=== PATIENT | female | born 1960 | race Two or more races ===

== ENCOUNTER 2019-04-28 19:31 | Emergency (ER) | payer OTHER ==
[~2019-04-28] VITALS: Ht 157.5 cm; Wt 108.9 kg
--- NOTE | 2019-04-28 19:31 | NUR ---
ED Nurse Note: brought in by ambulance lafd ra 89 from home c/o allergic reaction to abx x 5 days; patient unable to recall medication. patient reports generalized itching. ao4. nad. vss. removed gown and placed on monitor. iv access established. blood collected; sent down to lab.
[2019-04-28 19:42] VITALS: BP 140/102
[2019-04-28] MEDS ORDERED: Solu-MEDROL 125mg Inj IVP ONE (19:45)
[2019-04-28] MEDS ORDERED: DiphenhydrAMINE 50mg/ml Inj IVP ONE (19:45)
--- NOTE | 2019-04-28 20:00 | NUR ---
ED Nurse Note: urine collected; sent down to lab.
[2019-04-28 20:06] LABS: BASOPHILS % (AUTO) 2.1 % (0.0-2.0); EOSINOPHILS % (AUTO) 5.6 % (0.0-3.0); HEMATOCRIT 40.3 % (37.0-47.0); HEMOGLOBIN 13.6 G/DL (12.0-16.0); LYMPHOCYTES % (AUTO) 39.7 % (20.0-45.0); MEAN CORPUSCULAR VOLUME 86 FL (80-99); MONOCYTES % (AUTO) 6.8 % (1.0-10.0); NEUTROPHILS % (AUTO) 45.8 % (45.0-75.0); PLATELET COUNT 204 K/UL (150-450); RED BLOOD COUNT 4.69 M/UL (4.20-5.40); RED CELL DISTRIBUTION WIDTH 11.4 % (11.6-14.8); WHITE BLOOD COUNT 5.7 K/UL (4.8-10.8)
[2019-04-28 20:21] LABS: ANION GAP 7 mmol/L (5-15); BLOOD UREA NITROGEN 13 mg/dL (7-18); CALCIUM 9.6 MG/DL (8.5-10.1); CARBON DIOXIDE 27 MMOL/L (21-32); CHLORIDE 101 MMOL/L (98-107); CREATININE 1.1 MG/DL (0.55-1.30); POTASSIUM 3.4 MMOL/L (3.5-5.1); SODIUM 135 MMOL/L (136-145)
[2019-04-28 20:27] LABS: ALANINE AMINOTRANSFERASE 167 U/L (12-78); ALBUMIN/GLOBULIN RATIO 1.1 (1.0-2.7); ALKALINE PHOSPHATASE 178 U/L (46-116); ASPARTATE AMINO TRANSFERASE 44 U/L (15-37); BILIRUBIN,TOTAL 0.3 MG/DL (0.2-1.0)
[2019-04-28 20:51] LABS: APPEARANCE,URINE SLIGHTLY CLOUDY; BILIRUBIN, URINE NEGATIVE (NEGATIVE); GLUCOSE, URINE (UA) NEGATIVE (NEGATIVE); KETONES,URINE NEGATIVE (NEGATIVE); LEUKOCYTE ESTERASE ,URINE 1+ (NEGATIVE); NITRITE,URINE NEGATIVE (NEGATIVE); PH,URINE 6 (4.5-8.0); PROTEIN,URINE 1+ (NEGATIVE); UROBILINOGEN,URINE NORMAL MG/DL (0.0-1.0)
[2019-04-28 20:55] LABS: COLOR,URINE YELLOW
[2019-04-28] MEDS ORDERED: Tylenol #3 tab (300mg/30mg) ORAL ONE (21:15)
--- NOTE | 2019-04-28 21:19 | NUR ---
ED Nurse Note: assisted patient on bedpan. patient resting inbed withno acute signs of distress. vss will continue to monitor.
[2019-04-28 21:20] VITALS: BP 118/85
--- NOTE | 2019-04-28 21:20 | NUR ---
ED Nurse Note: pt down to ct with sterile process tech. patient stable for transport.
--- NOTE | 2019-04-28 21:42 | NUR ---
ED Nurse Note: patient back from ct.
--- NOTE | 2019-04-28 21:59 | Emergency Room Report ---
History of Present Illness General Chief Complaint: Allergic Reaction Source: Patient Present Illness HPI 59-year-old female presents ED for evaluation. Brought in by EMS from home. States she is having allergic reaction. Describes itchiness to her body for the last few days. States that she was prescribed antibiotics for a "kidney infection" by her doctor. States that she completed the prescription however she has been having these symptoms. States that she does have allergy to some antibiotics but does not know the names of them. Does not know the name of the antibiotic she was prescribed. Denies any throat swelling or tongue swelling. Denies any fevers or chills. Notes back pain. Dull, 7 out of 10, nonradiating. Thinks is because of her kidneys. no other aggravating relieving factors. Denies any other associated symptoms Allergies: Coded Allergies: PENICILLINS (Verified Allergy, Unknown, 04/28/19) SULFA (SULFONAMIDE ANTIBIOTICS) (Verified Allergy, Unknown, 04/28/19) Patient History Past Medical History: none Past Surgical History: none Pertinent Family History: none Social History: Denies: smoking, alcohol use, drug use Now: No Immunizations: UTD Reviewed Nursing Documentation: PMH: Agreed; PSxH: Agreed Nursing Documentation-PMH Past Medical History: No History, Except For Review of Systems All Other Systems: negative except mentioned in HPI Physical Exam Vital Signs Date Time Temp Pulse Resp B/P (MAP) Pulse Ox O2 Delivery O2 Flow Rate FiO2 04/28/19 19:25 98.2 77 18 140/102 (115) 98 Room Air Sp02 EP Interpretation: reviewed, normal General Appearance: no apparent distress, alert, GCS 15, non-toxic, obese Head: normocephalic, atraumatic Eyes: bilateral eye normal inspection, bilateral eye PERRL ENT: hearing grossly normal, normal pharynx, no angioedema, normal voice Neck: full range of motion, supple/symm/no masses Respiratory: chest non-tender, lungs clear, normal breath sounds, speaking full sentences Cardiovascular #1: regular rate, rhythm, no edema Cardiovascular #2: 2+ carotid (R), 2+ carotid (L), 2+ radial (R), 2+ radial (L) , 2+ dorsalis pedis (R), 2+ dorsalis pedis (L) Gastrointestinal: normal bowel sounds, non tender, soft, non-distended, no guarding, no rebound Rectal: deferred Genitourinary: normal inspection, CVA tenderness (R), CVA tenderness (L) Musculoskeletal: back normal, normal range of motion, gait/station normal, non- tender Neurologic: alert, motor strength/tone normal, oriented x3, sensory intact, responsive, speech normal Psychiatric: judgement/insight normal, memory normal, mood/affect normal, no suicidal/homicidal ideation Reflexes: 3+ bicep (R), 3+ bicep (L), 3+ tricep (R), 3+ tricep (L), 3+ knee (R) , 3+ knee (L) Skin: no rash Lymphatic: no adenopathy Medical Decision Making Diagnostic Impression: Primary Impression: Allergic reaction Qualified Codes: T78.40XA - Allergy, unspecified, initial encounter Additional Impression: Back pain Qualified Codes: M54.5 - Low back pain ER Course Hospital Course 59-year-old female presents with itchiness after taking antibiotics for UTI. Differential diagnoses include: allergic reaction, angioedema, anaphlyaxis Clinical course Patient placed on stretcher. implementation consultant. After initial history and physical, I ordered Solu-Medrol, Benadryl, Zantac, IV fluids Labs reviewed - electrolytes okay, no leukocytosis, hemoglobin/hematocrit okay, mild LFT elevation, UA negative On reassessment patient states she has some itchiness still is complaining of back pain. States that there is a problem with her kidneys. States she has had "x-rays" of her kidneys previously. I ordered CT to evaluate CT unremarkable. I discussed these findings with the patient. She states she is been having this kidney problems on and off for some time now. I explained that she needs to follow-up with PMD for outpatient work-up Does not have a PMD. I will provide referrals. Safe for discharge with close outpatient follow-up i. I feel this is a highly complex case requiring extensive working including EKG/Rhythm strip, Xray/CT/US, Blood/urine lab work, repeat exams while in ED, and administration of strong opiates/narcotics for pain control, admission to hospital or close patient follow up. Diagnosis - allergic reaction, back pain Stable and discharged to home with prescriptions for motrin, robaxin, prednisone , Benadryl. Followup with PMD. Return to ED if symptoms recur or worsen Labs Test 04/28/19 19:42 04/28/19 20:15 White Blood Count 5.7 K/UL (4.8-10.8) Red Blood Count 4.69 M/UL (4.20-5.40) Hemoglobin 13.6 G/DL (12.0-16.0) Hematocrit 40.3 % (37.0-47.0) Mean Corpuscular Volume 86 FL (80-99) Mean Corpuscular Hemoglobin 28.9 PG (27.0-31.0) Mean Corpuscular Hemoglobin Concent 33.6 G/DL (32.0-36.0) Red Cell Distribution Width 11.4 % (11.6-14.8) Platelet Count 204 K/UL (150-450) Mean Platelet Volume 6.9 FL (6.5-10.1) Neutrophils (%) (Auto) 45.8 % (45.0-75.0) Lymphocytes (%) (Auto) 39.7 % (20.0-45.0) Monocytes (%) (Auto) 6.8 % (1.0-10.0) Eosinophils (%) (Auto) 5.6 % (0.0-3.0) Basophils (%) (Auto) 2.1 % (0.0-2.0) Sodium Level 135 MMOL/L (136-145) Potassium Level 3.4 MMOL/L (3.5-5.1) Chloride Level 101 MMOL/L (98-107) Carbon Dioxide Level 27 MMOL/L (21-32) Anion Gap 7 mmol/L (5-15) Blood Urea Nitrogen 13 mg/dL (7-18) Creatinine 1.1 MG/DL (0.55-1.30) Estimat Glomerular Filtration Rate 51.2 mL/min (>60) Glucose Level 115 MG/DL (74-106) Calcium Level 9.6 MG/DL (8.5-10.1) Total Bilirubin 0.3 MG/DL (0.2-1.0) Aspartate Amino Transf (AST/SGOT) 44 U/L (15-37) Alanine Aminotransferase (ALT/SGPT) 167 U/L (12-78) Alkaline Phosphatase 178 U/L (46-116) Total Protein 7.8 G/DL (6.4-8.2) Albumin 4.0 G/DL (3.4-5.0) Globulin 3.8 g/dL Albumin/Globulin Ratio 1.1 (1.0-2.7) Urine Color Yellow Urine Appearance Slightly cloudy Urine pH 6 (4.5-8.0) Urine Specific [place] 1.020 (1.005-1.035) Urine Protein 1+ (NEGATIVE) Urine Glucose (UA) Negative (NEGATIVE) Urine Ketones Negative (NEGATIVE) Urine Blood Negative (NEGATIVE) Urine Nitrite Negative (NEGATIVE) Urine Bilirubin Negative (NEGATIVE) Urine Urobilinogen Normal MG/DL (0.0-1.0) Urine Leukocyte Esterase 1+ (NEGATIVE) Urine RBC 0-2 /HPF (0 - 2) Urine WBC 0-2 /HPF (0 - 2) Urine Squamous Epithelial Cells Many /LPF (NONE/OCC) Urine Bacteria Occasional /HPF (NONE) CT/MRI/US Diagnostic Results CT/MRI/US Diagnostic Results : Imaging Test Ordered: CT A/P Impression FINDINGS: Lung bases: Unremarkable. No mass. No consolidation. Heart: Trace pericardial effusion. ABDOMEN: Liver: Hepatic steatosis. Subcentimeter hypodensity within the right hepatic lobe near the dome which is too small to characterize. Gallbladder and bile ducts: Unremarkable. Pancreas: Unremarkable. Spleen: Unremarkable. Adrenals: Unremarkable. Kidneys and ureters: Unremarkable. Stomach and bowel: Unremarkable. PELVIS: Appendix: Appendix is unremarkable. Bladder: Unremarkable. Reproductive: Calcified fibroids within the uterus. ABDOMEN and PELVIS: Intraperitoneal space: Unremarkable. Bones/joints: No acute fracture. No dislocation. Soft tissues: Unremarkable. Vasculature: Vascular calcifications. No abdominal aortic aneurysm. Lymph nodes: Unremarkable. IMPRESSION: No acute findings in the abdomen or pelvis. Last Vital Signs Date Time Temp Pulse Resp B/P (MAP) Pulse Ox O2 Delivery O2 Flow Rate FiO2 04/28/19 21:20 98.2 80 18 118/85 98 Room Air Status: improved Disposition: HOME, SELF-CARE Condition: Stable Scripts Prednisone* (PREDNISONE*) 20 Mg Tablet 40 MG ORAL DAILY for 5 Days, #10 TAB Prov: Rancho Ponce MD 04/28/19 Diphenhydramine Hcl* (DIPHENHYDRAMINE HCL*) 25 Mg Capsule 25 MG ORAL Q6H PRN for Itching for 5 Days, #30 CAP 0 Refills Prov: Rancho Ponce MD 04/28/19 Methocarbamol* (ROBAXIN-750*) 750 Mg Tablet 750 MG PO TID, #21 TAB 0 Refills Prov: Rancho Ponce MD 04/28/19 Ibuprofen* (MOTRIN*) 600 Mg Tablet 600 MG ORAL Q8H PRN for For Pain, #30 TAB 0 Refills Prov: Rancho Ponce MD 04/28/19 Referrals: NON PHYSICIAN (PCP) Rancho Ponce MD Apr 28, 2019 21:59
--- NOTE | 2019-04-28 22:06 | Diagnostic Imaging Report ---
EXAM: CT Abdomen and Pelvis Without Intravenous Contrast CLINICAL HISTORY: FLANK TECHNIQUE: Axial computed tomography images of the abdomen and pelvis without intravenous contrast. CTDI is 31.8 mGy and DLP is 1787.4 mGy-cm. One or more of the following dose reduction techniques were used: automated exposure control, adjustment of the mA and/or kV according to patient size, use of iterative reconstruction technique. COMPARISON: No relevant prior studies available. FINDINGS: Lung bases: Unremarkable. No mass. No consolidation. Heart: Trace pericardial effusion. ABDOMEN: Liver: Hepatic steatosis. Subcentimeter hypodensity within the right hepatic lobe near the dome which is too small to characterize. Gallbladder and bile ducts: Unremarkable. Pancreas: Unremarkable. Spleen: Unremarkable. Adrenals: Unremarkable. Kidneys and ureters: Unremarkable. Stomach and bowel: Unremarkable. PELVIS: Appendix: Appendix is unremarkable. Bladder: Unremarkable. Reproductive: Calcified fibroids within the uterus. ABDOMEN and PELVIS: Intraperitoneal space: Unremarkable. Bones/joints: No acute fracture. No dislocation. Soft tissues: Unremarkable. Vasculature: Vascular calcifications. No abdominal aortic aneurysm. Lymph nodes: Unremarkable. IMPRESSION: No acute findings in the abdomen or pelvis.
[2019-04-28] MEDS ORDERED: ROBAXIN-750750 MG PO (22:12)
[2019-04-28] MEDS ORDERED: DIPHENHYDRAMINE25 M1 ORAL (22:12)
[2019-04-28] MEDS ORDERED: IBUPROFEN600 MG ORAL (22:12)
[2019-04-28] MEDS ORDERED: PREDNISONE20 MG ORAL (22:12)
[2019-04-28 22:30] VITALS: BP 118/85
--- NOTE | 2019-04-28 22:30 | NUR ---
ER DISCHARGE NOTE: Patient is cleared to be discharged per ERMD, pt is aox4, on room air, with stable vital signs. pt was given dc and prescription instructions, pt was able to verbalize understanding, pt id band and iv site removed without complications. pt is able to ambulate with steady gait. pt took all belongings.
== END 2019-04-28 22:30 | disposition home or self-care (01) ==
LOC: EDBD 19:31 → EMR 19:50
DX: L29.9 Pruritus, unspecified (principal); T36.95XA Adverse effect of unspecified systemic antibiotic, initial encounter; M54.5 Low back pain; Z88.0 Allergy status to penicillin; Z88.2 Allergy status to sulfonamides
CPT/HCPCS: 36415; 74176; 80053; 81003; 85025; 96361; 96374; 96375; J1200; J2930; J7030; Z7502; 99284